=== PATIENT | male | born 1965 | race Caucasian/White ===

== ENCOUNTER 2018-07-02 09:56 | Emergency (ER) | payer OTHER ==
--- NOTE | 2018-07-02 10:22 | UC ---
Skin Complaint HPI - HPI Summary HPI Summary: 52 y/o male presents to the urgent care c/o a rash under his RT upper arm since last Monday06/29/2018. Pt states feeling fatigue, joint pains and subjective low grade fever w/ a MAJANO yesterday. Pain is dull 3/10, rash is not painful. Pt recalls he removed a tick bite 3 weeks ago form his left arm. He can't recall if it was engorged or how long was there.Pt denies SOB, dizziness, palpitations , chest pain, abdominal pain, N/V/D. - History of Current Complaint Chief Complaint: UCRash Time Seen by Provider: 07/02/18 10:20 Stated Complaint: RASH Hx Obtained From: Patient Onset/Duration: Sudden Onset, Lasting Days - 3 days, Still Present Skin Exposure Onset/Duration: Days Ago - 3 days Timing: Constant Onset Severity: Mild Current Severity: Mild Pain Intensity: 3 Pain Scale Used: 0-10 Numeric Location: Discrete - RT upper arm Character: Redness Aggravating Factor(s): Other - MAJANO, joint pains Alleviating Factor(s): Nothing Associated Signs & Symptoms: Positive: Fever, Rash. Negative: Drainage, Tenderness Related History: Possible Reaction to: Insect - Allergy/Home Medications Allergies/Adverse Reactions: Allergies Allergy/AdvReac Type Severity Reaction Status Date / Time No Known Allergies Allergy Verified 07/02/18 10:16 Review of Systems Constitutional: Fever, Fatigue Skin: Rash - RT upper arm Eyes: Negative ENT: Negative Respiratory: Negative Cardiovascular: Negative Gastrointestinal: Negative Genitourinary: Negative Motor: Negative Neurovascular: Negative Musculoskeletal: Arthralgia Neurological: Headache Psychological: Negative Is Patient Immunocompromised?: No All Other Systems Reviewed And Are Negative: Yes PMH/Surg Hx/FS Hx/Imm Hx Previously Healthy: Yes - Pt denies PMHX - Surgical History Surgical History: None - Family History Family History: Pancreatic cancer - Social History Occupation: Employed Full-time Lives: With Family Alcohol Use: Daily Substance Use Type: Marijuana Smoking Status (MU): Current Some Day Smoker Physical Exam - Summary Physical Exam Summary: Vital Signs Reviewed: Yes General: well developed, well nourished male sitting in the examining table w/o any apparent distress. Eyes: Positive: Conjunctiva Clear - PERRLA, EOMI ENT: Positive: Normal ENT inspection, Hearing grossly normal, Pharynx normal, TMs normal Neck: Positive: Supple, Nontender, No Lymphadenopathy Respiratory: Positive: Chest nontender, Lungs clear, Normal breath sounds Cardiovascular: Positive: RRR, No Murmur, Pulses Normal Abdomen Description: Positive: Nontender, No Organomegaly, Soft. Negative: CVA Tenderness (R), CVA Tenderness (L) Bowel Sounds: Positive: Present Musculoskeletal: Positive: Strength Intact, ROM Intact, No Edema Neurological Exam: Normal Psychological Exam: Normal Skin: positive medial aspect or the Rt upper arm w/ an erythematous patches w/ a central clearance and classical bull's eye lesions, about 5cmx 6.0cm in size, non tender to palpation. no swelling or drainage observed. Triage Information Reviewed: Yes Vital Signs: Initial Vital Signs Temp 97.8 F 07/02/18 10:13 Pulse 61 07/02/18 10:13 Resp 16 07/02/18 10:13 BP 111/72 07/02/18 10:13 Pulse Ox 100 07/02/18 10:13 Course/Dx - Course Course Of Treatment: 52 y/o male presents to the urgent care c/o a rash under his RT upper arm since last Monday06/29/2018. Pt states feeling fatigue, joint pains and subjective low grade fever w/ a MAJANO yesterday. Pain is dull 3/10, rash is not painful. Pt recalls he removed a tick bite 3 weeks ago form his left arm. He can't recall if it was engorged or how long was there.Pt denies SOB, dizziness, palpitations, chest pain, abdominal pain, N/V/D.Hx obtained. Pt most likely with Lyme Disease on examination. Lyme serology ordered. Pt Rx Doxycycline PO . Advised that there is to possibility the serology returns negative the first 2 weeks of exposure. However strongly advised to f/u with Dr Vegas or PCP for further management. Pt understood and agreed with plan of care. - Differential Diagnoses - Skin Complaint Differential Diagnoses: Abscess, Cellulitis, MRSA, Tick Born Illness - Diagnoses Provider Diagnoses: 1- Erythema migrans rash. 2-Lyme disease Discharge - Sign-Out/Discharge Documenting (check all that apply): Patient Departure - D/C home - Discharge Plan Condition: Stable Disposition: HOME Prescriptions: DOXYcycline CAP(*) [DOXYcycline 100MG CAP(*)] 100 mg PO BID #[id number] cap Patient Education Materials: Lyme Disease (ED) Referrals: [facility] [Outside] - 1 Week Shasta BEGUM,Abelino Corbin [Medical Doctor] - 3 Days Additional Instructions: 1- Please take full course of antibiotic to avoid resistance. Please take Ibuprofen PO q6-8hrs prn after meals for joint pains. 2- Lyme Serology and blood work still pending. You will be notified of results 3- F/u with DR Vegas or a PCP if Lyme serology return positive for further management in Lyme Disease - Billing Disposition and Condition Condition: STABLE Disposition: Home
== END 2018-07-02 10:40 | disposition home or self-care (01) ==
LOC: UCEAST 09:56
DX: A69.20 Lyme disease, unspecified (principal); Z72.0 Tobacco use
CPT/HCPCS: 86617; 86618; 99202; G0463